=== PATIENT | male | born 1970 | race Caucasian/White ===

== ENCOUNTER 2016-12-01 21:03 | Observation (INO) | payer OTHER ==
[~2016-12-01] VITALS: Ht 182.9 cm; Wt 107.9 kg
[~2016-12-01 21:03] MED LIST: FLX10 PO; LRT5 PO
[2016-12-01] MEDS ORDERED: SODIUM CHLORIDE 0.9% 1000ML 1,000 ML IV SCH (21:34)
--- NOTE | 2016-12-01 21:52 | DIAGNOSTIC IMAGING REPORT ---
CHEST ONE VIEW PORTABLE CLINICAL HISTORY: 46 years-old Male presenting with cp/numbness left side tingling. TECHNIQUE: Portable upright AP view of the chest was obtained. COMPARISON: None. FINDINGS: Cardiomediastinal silhouette normal. Lungs and pleural spaces clear. Osseous structures normal. Upper abdomen normal. IMPRESSION: 1. No acute cardiopulmonary disease. Electronically signed by: Trung Teague M.D. 12/01/2016 9:51 PM Dictated Date/Time: 12/01/2016 9:50 PM
[2016-12-01 22:02] LABS: BASO % 0.6 %; BASO ABS # 0.04 K/uL (0-0.2); COMPLETE YES; EOS % 3.7 %; HEMATOCRIT 43.2 % (42-52); IG% 0.3 %; LYMPH % 30.1 %; LYMPH ABS # 1.95 K/uL (1.2-3.4); MEAN CELL VOLUME 84.2 fL (80-100); MEAN CORPUSCULAR HEMOGLOBIN 30.6 pg (25-34); MEAN CORPUSCULAR HGB CONC 36.3 g/dl (32-36); MEAN PLATELET VOLUME 10.1 fL (7.4-10.4); MONO % 5.1 %; NEUT % 60.2 %; PLATELET COUNT 175 K/uL (130-400); RED BLOOD COUNT 5.13 M/uL (4.7-6.1); WHITE BLOOD COUNT 6.47 K/uL (4.8-10.8)
--- NOTE | 2016-12-01 22:08 | DIAGNOSTIC IMAGING REPORT ---
HEAD WITHOUT CONTRAST (CT) CLINICAL HISTORY: 46 years-old Male presenting with Stroke, left*numbness. TECHNIQUE: Multidetector CT imaging of the head was performed without the use of intravenous contrast. IV contrast: None. A dose lowering technique was used consistent with the principles of ALARA (as low as reasonably achievable). COMPARISON: None. CT DOSE (mGy.cm): The estimated cumulative dose is 638.56 mGycm. FINDINGS: Manager Multimedia topogram: Unremarkable. Ventricles and sulci normal in size. Brain parenchyma normal in appearance with preserved haley-white differentiation. No mass effect or midline shift. No hemorrhage or acute territorial infarct. No extra-axial fluid collection. Paranasal sinuses and mastoid air cells clear. Calvarium intact. IMPRESSION: 1. No acute intracranial pathology. Electronically signed by: Trung Teague M.D. 12/01/2016 10:07 PM Dictated Date/Time: 12/01/2016 10:05 PM
[2016-12-01 22:10] LABS: POINT OF CARE TROPONIN I < 0.030 ng/ml (0-0.045)
[2016-12-01 22:12] LABS: PARTIAL THROMBOPLASTIN RATIO 1.1; PROTHROMBIN TIME (PATIENT) 10.3 SECONDS (9.0-12.0)
[2016-12-01 22:23] LABS: ALKALINE PHOSPHATASE 100 U/L (45-117); ALT/SGPT 68 U/L (12-78); AST/SGOT 29 U/L (15-37); BLOOD UREA NITROGEN 14 mg/dl (7-18); BUN/CREATININE RATIO 10.4 (10-20); CALCIUM 9.3 mg/dl (8.5-10.1); CARBON DIOXIDE 27 mmol/L (21-32); CHLORIDE 106 mmol/L (98-107); CKMB/CK RATIO 0.9 (0-3.0); GLUCOSE 96 mg/dl (70-99); POTASSIUM 3.7 mmol/L (3.5-5.1); SODIUM 140 mmol/L (136-145)
[2016-12-01] MEDS ORDERED: PRLSR20 PO (22:33)
[2016-12-01] MEDS ORDERED: ASPI325T39 PO (22:33)
--- NOTE | 2016-12-01 23:00 | DIAGNOSTIC IMAGING REPORT ---
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 TECHNIQUE: Real-time grayscale and color and spectral Doppler ultrasound imaging of the veins of the bilateral lower extremities was performed. Compression and augmentation were also utilized. COMPARISON: None. FINDINGS: Right: Common femoral vein: Patent. Femoral vein: Patent. Greater saphenous vein: Patent. Popliteal vein: Patent. Calf veins: Patent. Left: Common femoral vein: Patent. Femoral vein: Patent. Greater saphenous vein: Patent. Popliteal vein: Patent. Calf veins: Patent. Other: None. IMPRESSION: No evidence of deep venous thrombosis. Electronically signed by: Trung Teague M.D. 12/01/2016 10:59 PM Dictated Date/Time: 12/01/2016 10:59 PM
[2016-12-01 23:11] LABS: MAGNESIUM 2.1 mg/dl (1.8-2.4)
[2016-12-02] VITALS (8 sets, daily range): BP systolic 127–152; BP diastolic 70–90; PULSE 64–77; TEMP 36.4–37; O2SAT 94–98; Ht 182.9 cm; Wt 107.9 kg
[2016-12-02] MEDS ORDERED: ONDANSETRON INJ 2 MG/ML 2 ML VIAL IV PRN (00:45)
[2016-12-02] MEDS ORDERED: NITROGLYCERIN 0.4 MG SL PER TAB CHARGE SL PRN (00:45)
[2016-12-02] MEDS ORDERED: LORAZEPAM 2 MG/ML 1 ML VIAL IV PRN (00:45)
[2016-12-02] MEDS ORDERED: ACETAMINOPHEN 325 MG TAB PO PRN (00:45)
[2016-12-02] MEDS ORDERED: MoRPHine SULFATE 4 MG/ML 1 ML CARP\\VIAL IV PRN (00:45)
[2016-12-02] MEDS ORDERED: LACTATED RINGER'S 1000ML 1,000 ML IV ONE (00:45)
[2016-12-02] MEDS ORDERED: TRAMADOL HCL 50 MG TAB PO PRN (00:45)
[2016-12-02 01:41] LABS: LYME DISEASE AB IGM NEG (NEG)
[2016-12-02 01:42] LABS: LYME DISEASE AB IGG NEG (NEG)
[2016-12-02] MEDS ORDERED: LORAZEPAM INJ 0.5 MG in SYRINGE 0.75 ML IV PRN (02:30)
--- NOTE | 2016-12-02 03:18 | HISTORY & PHYSICAL EXAMINATION ---
DATE OF ADMISSION: 12/02/2016 The patient has no primary care doctor. CHIEF COMPLAINT: Chest pain. HISTORY OF PRESENT ILLNESS: History obtained from patient and records. Medical history significant for GERD, arthritis. 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 No previous episodes. No shortness of breath. No diaphoresis. No radiation to the neck. Different from reflux symptoms. Hx of tick bite about 2 years ago. Patient cannot recall if he was treated. Given aspirin by at home. Currently comfortable. MEDICAL HISTORY: As above. SURGICAL HISTORY: He had appendectomy, tonsillectomy, reflux. HOME MEDICATIONS: Prilosec. ALLERGIES: No known drug allergies. FAMILY HISTORY: Heart disease. PERSONAL AND SOCIAL HISTORY: Nonsmoker, no chronic intake of alcoholic beverages. 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 REVIEW OF SYSTEMS: As per HPI. All other ROS negative. PHYSICAL EXAMINATION: VITAL SIGNS: Blood pressure was noted to be 113/70, pulse rate 62, RR 16, temperature 36.7, sats 95 on room air. GENERAL: Noted to be obese, slightly anxious, no respiratory distress. SKIN: Normal color. HEENT: [place] palpebral conjunctivae. Dry mucosa. NECK: Short neck. CHEST: Clear to auscultation. HEART: Regular rate and rhythm. No anterior chest wall tenderness. ABDOMEN: Soft. EXTREMITIES: No edema. No tenderness. Good left shoulder range of motion. NEUROLOGIC: No gross focality. LABORATORY DATA: Hemoglobin is 15.7, hematocrit 43.2, white cell count 6.4, platelets 175. Sodium 140, potassium 3.7, chloride 106, CO2 27, BUN 14, creatinine 1. Glucose 96. LFTs, lipase normal. Troponin noted to be 0.015. Chest x-ray no active disease CT head, no acute pathology. EKG as per my interpretation, rate 75, normal sinus rhythm, some T-wave flattening in inferior leads. ASSESSMENT: Atypical chest pain with numbness differentials : acute coronary syndrome, Lyme dse. PLAN: Observation PCU ASA for now for CAD prevention until ACS is ruled out. Follow troponin. Lyme screen. 2D echo. Home in the morning if workup unremarkable. DVT prophylaxis, Lovenox subQ. Full code. MTDD
[2016-12-02] MEDS ORDERED: IV FLUIDS COMPLETED PRN (05:15)
[2016-12-02 05:54] LABS: BASO % 0.8 %; BASO ABS # 0.04 K/uL (0-0.2); COMPLETE YES; EOS % 4.8 %; HEMATOCRIT 41.9 % (42-52); IG% 0.2 %; LYMPH % 26.2 %; LYMPH ABS # 1.36 K/uL (1.2-3.4); MEAN CORPUSCULAR HGB CONC 35.3 g/dl (32-36); MEAN PLATELET VOLUME 10.2 fL (7.4-10.4); MONO % 8.7 %; NEUT % 59.3 %; PLATELET COUNT 165 K/uL (130-400); RED BLOOD COUNT 4.93 M/uL (4.7-6.1); WHITE BLOOD COUNT 5.19 K/uL (4.8-10.8)
[2016-12-02] MEDS ORDERED: ENOXAPARIN 40 MG/0.4 ML SYR SC SCH (06:00)
--- NOTE | 2016-12-02 06:31 | EMERGENCY ROOM VISIT NOTE ---
History First contact with patient: 21:28 Chief Complaint: ARM PAIN Stated Complaint: RADIATING PAIN IN LEFT ARM,NUMBNESS IN LEFT ARM History of Present Illness The patient is a 46 year old male who presents to the Emergency Room with complaints of left arm tingling that radiates to his chest that has been intermittent throughout the day with some sweating and back pain who also had some left thigh tingling has been intermittent today. 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 There is extensive family heart disease having heart attacks in their 40s. No prior heart testing. Patient states symptoms are intermittent and last from a few minutes to a few seconds. Patient denies dyspnea, abdominal pain, vomiting, diarrhea, leg swelling. No prior heart disease or blood clots. Patient does not routinely see a family care doctor but does see the [facility] walk-in clinic. Review of Systems See HPI for pertinent positives & negatives. A total of 10 systems reviewed and were otherwise negative. Past Medical/Surgical History Medical Problems: (1) Chest pain (2) HTN (hypertension) GERD, appendectomy, tonsillectomy, orthopedic injuries Family History Cancer Diabetes mellitus Heart disease Hypertension Social History Smoking Status: Never Smoker Smokeless Tobacco Use: Yes Alcohol Use: none Drug Use: none Marital Status: Housing Status: lives with family Occupation Status: employed Current/Historical Medications Scheduled Aspirin (Aspirin Ec), 325 MG PO DAILY Omeprazole (Prilosec), 20 MG PO DAILY Physical Exam Vital Signs Date Time Temp Pulse Resp B/P (MAP) Pulse Ox O2 Delivery O2 Flow Rate FiO2 12/01/16 23:59 62 16 139/70 95 Room Air 12/01/16 21:06 36.7 74 20 154/101 95 Room Air Physical Exam VITALS: Vitals are noted on the nurse's note and reviewed by myself. Vital signs stable. GENERAL: Pleasant male, in no acute distress, nondiaphoretic, well-developed well-nourished. SKIN: The skin was without rashes, erythema, edema, or bruising. There is no tenting of the skin. Capillary reflex less than 2 seconds. HEAD: Normocephalic atraumatic. EARS: External auditory canals clear, tympanic membranes pearly haley without erythema or effusion bilaterally. EYES: Pupils equal round and reactive to light and accommodation. Conjunctivae without injection, sclerae without icterus. Extraocular movements intact. NOSE: Patent, turbinates without inflammation or discharge. MOUTH: Mucous membranes moist. Pharynx without erythema or exudate. Uvula midline. Airway patent. Tongue does not deviate. NECK: Supple without nuchal rigidity. No lymphadenopathy. No thyromegaly. Cervical spine is nontender. No JVD. HEART: Regular rate and rhythm LUNGS: Clear to auscultation bilaterally without wheezes, rales or rhonchi. No dullness to percussion. No retractions or accessory muscle use. ABDOMEN: Positive bowel sounds x 4. Normal tympanic percussion. Soft, nontender, without masses or organomegaly. Mcclure sign negative. No guarding or rebound tenderness. MUSCULOSKELETAL: No muscle atrophy, erythema, or edema noted. NEURO: Patient was alert and oriented to person place and time. Normal sensation to light and sharp touch. No focal neurological deficits. Medical Decision & Procedures Laboratory Results 12/01/16 21:50 Test 12/01/16 21:50 12/01/16 21:51 Prothrombin Time 10.3 SECONDS (9.0-12.0) Prothromb Time International Ratio 1.0 (0.9-1.1) Activated Partial Thromboplast Time 28.5 SECONDS (21.0-31.0) Partial Thromboplastin Ratio 1.1 Anion Gap 7.0 mmol/L (3-11) Est Creatinine Clear Calc Drug Dose 90.4 ml/min Estimated GFR () 75.8 Estimated GFR (Non- 65.4 BUN/Creatinine Ratio 10.4 (10-20) Calcium Level 9.3 mg/dl (8.5-10.1) Magnesium Level 2.1 mg/dl (1.8-2.4) Total Bilirubin 0.4 mg/dl (0.2-1) Direct Bilirubin < 0.1 mg/dl (0-0.2) Aspartate Amino Transf (AST/SGOT) 29 U/L (15-37) Alanine Aminotransferase (ALT/SGPT) 68 U/L (12-78) Alkaline Phosphatase 100 U/L (45-117) Total Creatine Kinase 164 U/L (39-308) Creatine Kinase MB 1.4 ng/ml (0.5-3.6) Creatine Kinase MB Ratio 0.9 (0-3.0) Total Protein 7.2 gm/dl (6.4-8.2) Albumin 3.9 gm/dl (3.4-5.0) Lipase 183 U/L (73-393) Thyroid Stimulating Hormone (TSH) 4.080 uIu/ml (0.300-4.500) Lyme Disease IgG Antibody NEG (NEG) Lyme Disease IgM Antibody NEG (NEG) Bedside D-Dimer 172 ng/mlFEU (0-450) Bedside Troponin I < 0.030 ng/ml (0-0.045) Medications Administered Medications (Trade) Dose Ordered Sig/Elham Route Start Time Stop Time Status Last Admin Dose Admin Sodium Chloride 1,000 ml @ 50 mls/hr Q20H IV 12/01/16 21:34 12/02/16 02:16 DC 12/01/16 22:06 50 MLS/HR ED Course Prior records/ancillary studies reviewed. Triage Nursing notes reviewed. Additional history obtained from family. The patient's history was concerning for chest pain. Differential diagnosis: Etiologies such as cardiac ischemia, neurologic, aortic dissection, pulmonary embolism, pneumonia, pneumothorax, musculoskeletal, infections, pericarditis, myocarditis, esophageal rupture, gastrointestinal, as well as others were entertained. Physical examination: As above. ER treatment provided: Patient was observed. The gave aspirin just prior to arrival On reassessment the patient felt better. Diagnostic interpretation by me: The electrocardiogram was normal sinus, normal intervals, Q wave in lead 3, no acute ST-T wave changes, rate of 73. Impression normal sinus rhythm with Q wave in the inferior leads interpreted by myself The labs revealed troponin. Negative d-dimer Imaging studies: Chest x-ray no acute consolidation, pneumothorax. My interpretation Negative head CT per radiology Negative vascular ultrasound for DVT per radiology Consultation: A consultation was placed with the hospitalist, Dr. Ramsey. The case was discussed and diagnostics were reviewed. The patient was evaluated in the ER for further treatment. Family history seem consistent with chest pain with concerns for cardiac in etiology. He'll be evaluated by medicine for further evaluation and workup. Patient is agreeable to treatment plan. First set of heart enzymes are negative. He has a strong family history of heart disease and has not seen a doctor in quite sometime. He does chew tobacco. By the evaluation outlined above emergent etiologies such as aortic dissection , pulmonary embolism, pneumonia, pneumothorax, infections, pericarditis, myocarditis, gastrointestinal, as well as others were deemed relatively unlikely. The pt informed about the findings as listed above. All questions were answered and pleased with the treatment. Case reviewed with my attending Medical Decision As above Impression Primary Impression: Precordial chest pain Departure Information Dispostion Being Evaluated By Hospitalist Condition FAIR Referrals No Doctor, Assigned (PCP) Patient Instructions My [facility]
[2016-12-02 06:35] LABS: CHOLESTEROL 117 mg/dl (0-200); CHOLESTEROL/HDL RATIO 4.9; HDL CHOLESTEROL 24 mg/dl; LDL CHOLESTEROL CALCULATED 30 mg/dl; TRIGLYCERIDES 313 mg/dl (0-150); VERY LOW DENSITY LIPOPROT CALC 63 mg/dl
[2016-12-02] MEDS ORDERED: ASPIRIN 325 MG ECTAB PO SCH (09:00)
--- NOTE | 2016-12-02 12:36 | Progress Note ---
Medicine Progress Note Date & Time of Visit: Dec 02, 2016 at 12:23. Subjective Pt was seen and examined lying in bed comfortable with at bedside Pt said that he feels fine He said that he does not have any numbness in his left Upper extremities He denies any chest pain, palpitation, dizziness and SOB Objective Last 8 Hrs Date Time Temp Pulse Resp B/P (MAP) Pulse Ox O2 Delivery O2 Flow Rate FiO2 12/02/16 11:32 36.8 64 16 135/77 (96) 94 Room Air 12/02/16 08:00 95 Room Air 12/02/16 07:38 37.0 77 16 127/70 (89) 95 Room Air 12/02/16 04:43 36.4 64 20 150/75 (100) 94 Room Air Physical Exam: General- No acute distress Head- atraumatic Eyes- PERRL, EOMI ENT- oropharynx clear Neck- supple, no JVD Lungs- clear to auscultation Heart- regular rhythm; no murmur Abdomen- normal bowel sounds, soft Extremities- no calf tenderness Neuro- alert, oriented x 3; PERRL, EOMI; no facial palsy; no dysarthria; motor 5 /5 bilaterally; no cogwheel rigidity, finger to nose intact bilaterally Skin- warm & dry Laboratory Results: Last 24 Hours Test 12/01/16 21:50 12/01/16 21:51 12/02/16 05:26 White Blood Count 6.47 K/uL 5.19 K/uL Red Blood Count 5.13 M/uL 4.93 M/uL Hemoglobin 15.7 g/dL 14.8 g/dL Hematocrit 43.2 % 41.9 % Mean Corpuscular Volume 84.2 fL 85.0 fL Mean Corpuscular Hemoglobin 30.6 pg 30.0 pg Mean Corpuscular Hemoglobin Concent 36.3 g/dl 35.3 g/dl Platelet Count 175 K/uL 165 K/uL Mean Platelet Volume 10.1 fL 10.2 fL Neutrophils (%) (Auto) 60.2 % 59.3 % Lymphocytes (%) (Auto) 30.1 % 26.2 % Monocytes (%) (Auto) 5.1 % 8.7 % Eosinophils (%) (Auto) 3.7 % 4.8 % Basophils (%) (Auto) 0.6 % 0.8 % Neutrophils # (Auto) 3.89 K/uL 3.08 K/uL Lymphocytes # (Auto) 1.95 K/uL 1.36 K/uL Monocytes # (Auto) 0.33 K/uL 0.45 K/uL Eosinophils # (Auto) 0.24 K/uL 0.25 K/uL Basophils # (Auto) 0.04 K/uL 0.04 K/uL RDW Standard Deviation 38.3 fL 38.7 fL RDW Coefficient of Variation 12.6 % 12.8 % Immature Granulocyte % (Auto) 0.3 % 0.2 % Immature Granulocyte # (Auto) 0.02 K/uL 0.01 K/uL Prothrombin Time 10.3 SECONDS Prothromb Time International Ratio 1.0 Activated Partial Thromboplast Time 28.5 SECONDS Partial Thromboplastin Ratio 1.1 Sodium Level 140 mmol/L Potassium Level 3.7 mmol/L Chloride Level 106 mmol/L Carbon Dioxide Level 27 mmol/L Anion Gap 7.0 mmol/L Blood Urea Nitrogen 14 mg/dl Creatinine 1.30 mg/dl Est Creatinine Clear Calc Drug Dose 90.4 ml/min Estimated GFR () 75.8 Estimated GFR (Non- 65.4 BUN/Creatinine Ratio 10.4 Random Glucose 96 mg/dl Calcium Level 9.3 mg/dl Magnesium Level 2.1 mg/dl Total Bilirubin 0.4 mg/dl Direct Bilirubin < 0.1 mg/dl Aspartate Amino Transf (AST/SGOT) 29 U/L Alanine Aminotransferase (ALT/SGPT) 68 U/L Alkaline Phosphatase 100 U/L Total Creatine Kinase 164 U/L Creatine Kinase MB 1.4 ng/ml Creatine Kinase MB Ratio 0.9 Troponin I < 0.015 ng/ml < 0.015 ng/ml Total Protein 7.2 gm/dl Albumin 3.9 gm/dl Lipase 183 U/L Thyroid Stimulating Hormone (TSH) 4.080 uIu/ml Lyme Disease IgG Antibody NEG Lyme Disease IgM Antibody NEG Bedside D-Dimer 172 ng/mlFEU Bedside Troponin I < 0.030 ng/ml Triglycerides Level 313 mg/dl Cholesterol Level 117 mg/dl HDL Cholesterol 24 mg/dl LDL Cholesterol, Calculated 30 mg/dl VLDL Cholesterol, Calculated 63 mg/dl Cholesterol/HDL Ratio 4.9 Assessment & Plan Left UE numbness No focal neuro deficit of exam CT head showed no acute intracranial pathology. Received ASA Resolved Atypical chest discomfort Troponin are negative EKG showed no ischemic changes Echo pending No arrhythmia on tele monitor On aspirin Tobacco abuse Advised pt on tobacco chewing cessation DVT px on Lovenox subQ CODE STATUS FULL CODE DISPOSITION Will discharge home today if echo normal Current Inpatient Medications: Current Inpatient Medications Medications (Trade) Dose Ordered Sig/Elham Route Start Time Stop Time Status Last Admin Dose Admin Enoxaparin Sodium (Lovenox Inj) 40 mg Q24H SC 12/02/16 06:00 01/01/17 05:59 Acetaminophen (Tylenol Tab) 650 mg Q4H PRN PO 12/02/16 00:45 01/01/17 00:44 12/02/16 08:13 650 MG Nitroglycerin (Nitrostat Tab) 0.4 mg UD PRN SL 12/02/16 00:45 01/01/17 00:44 Aspirin (Ecotrin Tab) 325 mg QAM PO 12/02/16 09:00 01/01/17 08:59 12/02/16 08:09 325 MG Morphine Sulfate (MoRPHine SULFATE INJ) 4 mg Q3H PRN IV 12/02/16 00:45 12/16/16 00:44 Tramadol HCl (Ultram Tab) 25 mg Q6H PRN PO 12/02/16 00:45 01/01/17 00:44 Ondansetron HCl (Zofran Inj) 4 mg Q6H PRN IV 12/02/16 00:45 01/01/17 00:44 Lorazepam (Ativan Inj) 0.5 mg Q4H PRN IV 12/02/16 00:45 01/01/17 00:44 Lactated Ringer's 1,000 ml @ 75 mls/hr [id number] ONCE IV 12/02/16 00:45 12/02/16 14:04 12/02/16 02:34 75 MLS/HR Lorazepam 0.5 mg/ Syringe 1 ml @ 1 mls/min Q4H PRN IV 12/02/16 02:30 01/01/17 02:29 Miscellaneous (Iv Fluids Completed) 1 ea PRN PRN N/A 12/02/16 05:15 12/02/17 05:14
--- NOTE | 2016-12-02 14:07 | ECHOCARDIOGRAM REPORT ---
*NOTICE TO RECEIVING CONSTITUTION PARTY AGENCY This information is strictly Confidential and protected under [place] law. [place] law prohibits you from making any further disclosure of this information unless further disclosure is expressly permitted by the written consent of the person to whom it pertains or is authorized by law. A general authorization for the release of medical or other information is not sufficient for this purpose. Hospital accepts no responsibility if the information is made available to any other person, INCLUDING THE PATIENT. Interpretation Summary * Conclusions -- * The left ventricle is normal in size. * Left ventricular systolic function is normal. * Ejection Fraction = 60-65%. * The left ventricular wall motion is normal at rest. * The right ventricular systolic function is normal. * No significant valvular pathology. Procedure Details * A complete two-dimensional transthoracic echocardiogram was performed (2D, M-mode, Doppler and color flow Doppler). Left Ventricle * The left ventricle is normal in size. * There is normal left ventricular wall thickness. * Ejection Fraction = 60-65%. * Left ventricular systolic function is normal. * The left ventricular wall motion is normal at rest. Right Ventricle * The right ventricle is normal size. * The right ventricular systolic function is normal. Atria * The left atrial size is normal. * Right atrial size is normal. * The interatrial septum is intact with no evidence for an atrial septal defect. Mitral Valve * The mitral valve is normal in structure and function. Tricuspid Valve * The tricuspid valve is normal in structure and function. Aortic Valve * The aortic valve is normal in structure and function. Pulmonic Valve * The pulmonic valve is not well visualized. * There is no significant pulmonary regurgitation. Great Vessels * The aortic root and proximal ascending aorta are normal sized. Pericardium/Pleural * There is no pericardial effusion. MMode 2D Measurements and Calculations IVSd 1.0 cm IVSs 1.2 cm LVIDd 5.4 cm LVIDs 3.3 cm LVPWd 1.0 cm LVPWs 1.5 cm IVS/LVPW 0.99 FS 38.3 % EDV(Teich) 142.1 ml ESV(Teich) 45.4 ml EF(Teich) 68.0 % EDV(cubed) 158.5 ml ESV(cubed) 37.2 ml EF(cubed) 76.5 % % IVS thick 16.8 % % LVPW thick 42.0 % LV mass(C)d 219.4 grams LV mass(C)dI 95.5 grams/m\S\2 LV mass(C)s 152.9 grams LV mass(C)sI 66.5 grams/m\S\2 CO(Teich) 36.3 l/min CI(Teich) 15.8 l/min/m\S\2 SV(Teich) 96.7 ml SI(Teich) 42.1 ml/m\S\2 CO(cubed) 45.5 l/min CI(cubed) 19.8 l/min/m\S\2 SV(cubed) 121.3 ml SI(cubed) 52.8 ml/m\S\2 Ao root diam 3.6 cm Ao root area 10.3 cm\S\2 ACS 1.8 cm LA dimension 4.2 cm asc Aorta Diam 2.8 cm LA/Ao 1.2 EDV(MOD-sp4) 139.5 ml ESV(MOD-sp4) 64.1 ml EF(MOD-sp4) 54.1 % EDV(MOD-sp2) 136.6 ml ESV(MOD-sp2) 50.5 ml EF(MOD-sp2) 63.0 % CO(MOD-sp4) 28.3 l/min CI(MOD-sp4) 12.3 l/min/m\S\2 SV(MOD-sp4) 75.4 ml SI(MOD-sp4) 32.8 ml/m\S\2 CO(MOD-sp2) 32.3 l/min CI(MOD-sp2) 14.1 l/min/m\S\2 SV(MOD-sp2) 86.1 ml SI(MOD-sp2) 37.5 ml/m\S\2 Doppler Measurements and Calculations MV E max leo 69.6 cm/sec MV A max leo 51.5 cm/sec MV E/A 1.4 MV P1/2t max leo 67.7 cm/sec MV P1/2t 91.6 msec MVA(P1/2t) 2.4 cm\S\2 MV dec slope 216.4 cm/sec\S\2 MV dec time 0.26 sec PA V2 max 103.1 cm/sec PA max PG 4.3 mmHg PI max leo 174.3 cm/sec PI max PG 12.1 mmHg PI dec slope 184.4 cm/sec\S\2 PI P1/2t 276.8 msec
--- NOTE | 2016-12-02 15:04 | Discharge Instructions ---
Discharge Instructions Date of Service Dec 02, 2016. Admission Reason for Admission: Left arm weakness Discharge Discharge Diagnosis / Problem: Atypical chest discomfort, Left arm weakness, Tobacco abuse Discharge Goals Goal(s): Decrease discomfort, Improve function, Improve disease control Activity Recommendations Activity Limitations: resume your previous activity (as tolerated) . Instructions / Follow-Up Instructions / Follow-Up Follow up with your Primary care provider Dr. Wolfe on Dec 05 @ 2:55 PM Advised on smoking cessation Seek medical attention if symptom reoccurs Current Hospital Diet Patient's current hospital diet: AHA Diet (Heart Healthy) Discharge Diet Recommended Diet: AHA Diet (Heart Healthy) Pending Studies Studies pending at discharge: no Laboratory Results Lipid Panel Test 12/02/16 05:26 Range/Units Triglycerides Level 313 H 0-150 mg/dl Cholesterol Level 117 0-200 mg/dl HDL Cholesterol 24 mg/dl Cholesterol/HDL Ratio 4.9 LDL Cholesterol, Calculated 30 mg/dl Medical Emergencies . Who to Call and When: Medical Emergencies: If at any time you feel your situation is an emergency, please call 911 immediately. . Non-Emergent Contact Non-Emergency issues call your: Primary Care Provider Call Non-Emergent contact if: you have any medication questions . . "Provider Documentation" section prepared by Jazz Archer. . VTE Core Measure Inpt VTE Proph given/why not?: Enoxaparin (Lovenox)SQ
--- NOTE | 2016-12-06 00:48 | Discharge Summary ---
Discharge Summary Date of Service Dec 06, 2016. 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 TECHNIQUE: Real-time grayscale and color and spectral Doppler ultrasound imaging of the veins of the bilateral lower extremities was performed. Compression and augmentation were also utilized. COMPARISON: None. FINDINGS: Right: Common femoral vein: Patent. Femoral vein: Patent. Greater saphenous vein: Patent. Popliteal vein: Patent. Calf veins: Patent. Left: Common femoral vein: Patent. Femoral vein: Patent. Greater saphenous vein: Patent. Popliteal vein: Patent. Calf veins: Patent. Other: None. IMPRESSION: No evidence of deep venous thrombosis. Electronically signed by: Trung Teague M.D. 12/01/2016 10:59 PM Dictated Date/Time: 12/01/2016 10:59 PM CHEST ONE VIEW PORTABLE CLINICAL HISTORY: 46 years-old Male presenting with cp/numbness left side tingling. TECHNIQUE: Portable upright AP view of the chest was obtained. COMPARISON: None. FINDINGS: Cardiomediastinal silhouette normal. Lungs and pleural spaces clear. Osseous structures normal. Upper abdomen normal. IMPRESSION: 1. No acute cardiopulmonary disease. Electronically signed by: Trung Teague M.D. 12/01/2016 9:51 PM Dictated Date/Time: 12/01/2016 9:50 PM HEAD WITHOUT CONTRAST (CT) CLINICAL HISTORY: 46 years-old Male presenting with Stroke, left*numbness. TECHNIQUE: Multidetector CT imaging of the head was performed without the use of intravenous contrast. IV contrast: None. A dose lowering technique was used consistent with the principles of ALARA (as low as reasonably achievable). COMPARISON: None. CT DOSE (mGy.cm): The estimated cumulative dose is 638.56 mGycm. FINDINGS: Home Therapy Clinician topogram: Unremarkable. Ventricles and sulci normal in size. Brain parenchyma normal in appearance with preserved haley-white differentiation. No mass effect or midline shift. No hemorrhage or acute territorial infarct. No extra-axial fluid collection. Paranasal sinuses and mastoid air cells clear. Calvarium intact. IMPRESSION: 1. No acute intracranial pathology. Electronically signed by: Trung Teague M.D. 12/01/2016 10:07 PM Dictated Date/Time: 12/01/2016 10:05 PM Medication Reconciliation Continued Medications: Aspirin (Aspirin Ec) 325 Mg Tab 325 MG PO DAILY Omeprazole (Prilosec) 20 Mg Capcr 20 MG PO DAILY, CAP Admission Information HPI (per Admitting provider): CHIEF COMPLAINT: Chest pain. HISTORY OF PRESENT ILLNESS: History obtained from patient and records. Medical history significant for GERD, arthritis. 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 No previous episodes. No shortness of breath. No diaphoresis. No radiation to the neck. Different from reflux symptoms. Hx of tick bite about 2 years ago. Patient cannot recall if he was treated. Given aspirin by at home. Currently comfortable. Physical Exam (per Admitting): PHYSICAL EXAMINATION: VITAL SIGNS: Blood pressure was noted to be 113/70, pulse rate 62, RR 16, temperature 36.7, sats 95 on room air. GENERAL: Noted to be obese, slightly anxious, no respiratory distress. SKIN: Normal color. HEENT: [place] palpebral conjunctivae. Dry mucosa. NECK: Short neck. CHEST: Clear to auscultation. HEART: Regular rate and rhythm. No anterior chest wall tenderness. ABDOMEN: Soft. EXTREMITIES: No edema. No tenderness. Good left shoulder range of motion. NEUROLOGIC: No gross focality. Hospital Course Left UE numbness No focal neuro deficit of exam CT head showed no acute intracranial pathology. Received ASA Resolved Atypical chest discomfort Troponin are negative EKG showed no ischemic changes Echo pending No arrhythmia on tele monitor On aspirin Tobacco abuse Advised pt on tobacco chewing cessation DVT px on Lovenox subQ CODE STATUS FULL CODE DISPOSITION Will discharge home today if echo normal Total time spent on discharge = 35 minutes This includes examination of the patient, discharge planning, medication reconciliation, and communication with other providers. Discharge Instructions Discharge Instructions Date of Service Dec 02, 2016. Admission Reason for Admission: Left arm weakness Discharge Discharge Diagnosis / Problem: Atypical chest discomfort, Left arm weakness, Tobacco abuse Discharge Goals Goal(s): Decrease discomfort, Improve function, Improve disease control Activity Recommendations Activity Limitations: resume your previous activity (as tolerated) . Instructions / Follow-Up Instructions / Follow-Up Follow up with your Primary care provider Dr. Wolfe on Dec 05 @ 2:55 PM Advised on smoking cessation Seek medical attention if symptom reoccurs Current Hospital Diet Patient's current hospital diet: AHA Diet (Heart Healthy) Discharge Diet Recommended Diet: AHA Diet (Heart Healthy) Pending Studies Studies pending at discharge: no Laboratory Results Lipid Panel Test 12/02/16 05:26 Range/Units Triglycerides Level 313 H 0-150 mg/dl Cholesterol Level 117 0-200 mg/dl HDL Cholesterol 24 mg/dl Cholesterol/HDL Ratio 4.9 LDL Cholesterol, Calculated 30 mg/dl Medical Emergencies . Who to Call and When: Medical Emergencies: If at any time you feel your situation is an emergency, please call 911 immediately. . Non-Emergent Contact Non-Emergency issues call your: Primary Care Provider Call Non-Emergent contact if: you have any medication questions . . "Provider Documentation" section prepared by Jazz Archer. . VTE Core Measure Inpt VTE Proph given/why not?: Enoxaparin (Lovenox)SQ Additional Copies To Kieran Wolfe M.D.
== END 2016-12-02 15:30 | disposition home or self-care (01) ==
LOC: C.EDB 21:06 → C.MED 12-02 00:16 → ENRESERV 12-02 01:20
PROVIDERS: ADMIT Internal Medicine; ATTEND Internal Medicine
DX: R07.89 Other chest pain (principal); I10 Essential (primary) hypertension; K21.9 Gastro-esophageal reflux disease without esophagitis; Z82.49 Family history of ischemic heart disease and other diseases of the circulatory system; Z79.82 Long term (current) use of aspirin; Z79.899 Other long term (current) drug therapy

== ENCOUNTER 2019-08-24 22:54 | Observation (INO) ==
--- NOTE | 2019-08-24 23:35 | Emergency Department Note ---
Impression & Plan Acute GI bleeding ED Provider Note NAME: LUNA CORREIA AGE: 49 SEX: M ARRIVES VIA: Walk-In INFORMANT: [Patient ED PROVIDER(S): Alejandra Petersen DO CHIEF COMPLAINT: GI bleeding PLAN: Disposition: Admitted to the [facility] group MEDICAL DECISION MAKING: This is a 49-year-old male patient presents to the emergency department with GI bleeding. Laboratory studies reveal stable H&H. Physical exam reveals dark red blood per rectum with some hemorrhoids noted. The patient does become slightly tachycardic upon standing with some diaphoresis and lightheadedness. By history, he states that prior to coming to the emergency department tonight he had dark red blood coming from him while standing in the shower. This followed an episode of significant blood loss in the toilet after having a bowel movement. The patient has never had a colonoscopy. He does have a family history of colon cancer. He remains hemodynamically stable. I discussed the case with the [facility] service and they will evaluate him for further management. Triage Nursing notes reviewed and agree them. [Prior medical records reviewed] Vital Signs: reviewed and unremarkable Differential diagnosis: Upper GI bleeding, lower GI bleeding, hemorrhoidal bleeding, anemia, orthostasis Diagnostics interpreted by me: ECG: Normal sinus rhythm at 61. No ischemia or ectopy noted. There is no ST segment elevation. Cardiac Monitoring: Normal sinus rhythm at 71. Laboratory studies: [See below] HPI: 49/M arrives for evaluation of GI bleed. Patient presents to the emergency department explaining that he has had diarrhea for the past 12 hours. As the day progressed, the patient developed some bloody stools. He became much more concerned tonight when he was producing only blood into the toilet. He states that he got into the shower in preparation to come here to the hospital and there was dark red blood coming from his rectum without any control. He explained he then felt up his underwear with blood. He denies ever having GI bleeding in the past. He does have a family history of colon cancer. He is never had a colonoscopy in the past. The patient became lightheaded after producing blood into the toilet and after being in the shower. ROS: See above HPI for pertinent positives & negatives. A total of 10 systems reviewed and were otherwise negative. 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 Extraocular eye muscles are intact, and sclera are anicteric. Nose - moist nasal mucosa without discharge. Mouth - moist buccal mucosa. Oropharynx is nonerythematous and there is no tonsillar exudate or edema noted. Neck: Supple; no JVD, nuchal rigidity, cervical lymphadenopathy. Heart: Regular rate and rhythm. There is a normal S1 and S2 with no murmurs, clicks, or gallops appreciated. Lungs: Clear to auscultation bilaterally with no wheezes, rales, or rhonchi. Abdomen: Soft, completely nontender, nondistended, with good bowel sounds. There are no palpable pulsatile masses or hepatosplenomegaly. There is no guarding, rigidity, or rebound noted. Extremities: No evidence of cyanosis, clubbing, or edema. There are easily palpable peripheral pulses. Skin: warm and dry with good turgor and no rashes. Rectal exam: There were 3 fairly large hemorrhoids noted. There was some dark red blood per rectum. Rectal examination was extremely painful for the patient. There was no blood noted within the patient's underwear. ED COURSE: Times/Reassessments: 2355: The patient was evaluated in room C6. A complete history and physical was performed. An IV lock was initiated and labs were drawn as above. The patient was typed and screened for blood. An order was rahul yasmine for continuous cardiac monitoring. The patient remained in a normal sinus rhythm at 70. A twelve-lead EKG was obtained. 0010: I reevaluated the patient and did a rectal exam. I reevaluated the patient and he was sleeping. I woke him and discussed the situation with him. The patient remains quite concerned about the episodes of rectal bleeding upon standing. I discussed the case with Dr. Rogel from [facility] service and they will evaluate the patient for further care. Alejandra Petersen, DO Past Med/Surg History Social History Preferred Language: Korean Feels Safe at Home: Yes Smoking Status: Never smoker Allergies Allergies Allergy/AdvReac Type Severity Reaction Status Date / Time No Known Allergies Allergy Verified 08/24/19 23:31 Home Meds Home Medications Medication Instructions Recorded Confirmed aspirin [Aspirin Childrens] 81 mg PO QAM 08/24/19 08/24/19 lisinopril 10 mg PO QAM 08/24/19 08/24/19 omeprazole 20 mg PO DAILYBB 08/24/19 08/24/19 Results & Data (ED) Vital Signs Vital Signs - 24 hr 08/24/19 22:57 08/24/19 23:38 08/24/19 23:44 Temperature 36.9 C Temperature Source Oral Pulse Rate 76 76 Pulse Rate [Apical] Pulse Rate from SpO2 Sensor 77 Respiratory Rate 18 18 Respiratory Effort / Characteristics Non-Labored Spontaneous Respiratory Depth Normal Respiratory Pattern Regular Blood Pressure 154/66 H 149/75 H Blood Pressure [Left Arm] Blood Pressure Mean 95 92 Blood Pressure Mean [Left Arm] Blood Pressure Position Sitting Pulse Oximetry 95 96 96 Oxygen Delivery Method Room Air Room Air Room Air Sepsis Recent Fever Within 48 Hours No Sepsis Action Taken by Nursing No Action Required 08/24/19 23:50 08/24/19 23:51 08/25/19 00:00 Temperature Temperature Source Pulse Rate 74 67 Pulse Rate [Apical] 68 Pulse Rate from SpO2 Sensor 72 66 Respiratory Rate 25 H 23 19 Respiratory Effort / Characteristics Respiratory Depth Respiratory Pattern Blood Pressure 174/93 H 169/85 H Blood Pressure [Left Arm] 174/93 H Blood Pressure Mean 130 99 Blood Pressure Mean [Left Arm] 120 Blood Pressure Position Pulse Oximetry 95 94 93 Oxygen Delivery Method Room Air Room Air Room Air Sepsis Recent Fever Within 48 Hours Sepsis Action Taken by Nursing 08/25/19 00:31 08/25/19 01:00 08/25/19 01:30 Temperature Temperature Source Pulse Rate 62 63 70 Pulse Rate [Apical] Pulse Rate from SpO2 Sensor 64 64 Respiratory Rate Respiratory Effort / Characteristics Respiratory Depth Respiratory Pattern Blood Pressure 120/66 132/79 140/70 Blood Pressure [Left Arm] Blood Pressure Mean 97 86 87 Blood Pressure Mean [Left Arm] Blood Pressure Position Pulse Oximetry 95 93 95 Oxygen Delivery Method Room Air Room Air Room Air Sepsis Recent Fever Within 48 Hours Sepsis Action Taken by Nursing Laboratory Data Result diagrams: 08/24/19 23:42 08/24/19 23:42 Lab Results 08/24/19 08/24/19 08/24/19 Range/Units 23:42 23:42 23:42 WBC 5.35 (4.8-10.8) K/uL RBC 4.97 (4.7-6.1) M/uL Hgb 15.1 (14.0-18.0) g/dL Hct 42.6 (42-52) % MCV 85.7 (80-100) fL MCH 30.4 (25-34) pg MCHC 35.4 (32-36) g/dL RDW Std Deviation 40.7 (36.4-46.3) fL RDW Coeff of Adilson 13.1 (11.5-14.5) % Plt Count 184 (130-400) K/uL MPV 9.8 (7.4-10.4) fL Immature Gran % (Auto) 0.2 % Neut % (Auto) 67.9 % Lymph % (Auto) 19.3 % [place] % (Auto) 8.8 % Eos % (Auto) 3.4 % Baso % (Auto) 0.4 % Immature Gran # (Auto) 0.01 (0.00-0.02) K/uL Neut # (Auto) 3.64 (1.4-6.5) K/uL Lymph # (Auto) 1.03 L (1.2-3.4) K/uL [place] # (Auto) 0.47 (0.11-0.59) K/uL Eos # (Auto) 0.18 (0-0.5) K/uL Baso # (Auto) 0.02 (0-0.2) K/uL PT 10.7 (9.0-12.0) Seconds INR 1.0 (0.9-1.1) APTT 31.0 (21.0-31.0) Seconds PTT Ratio 1.1 Sodium (136-145) mmol/L Potassium (3.5-5.1) mmol/L Chloride (98-107) mmol/L Carbon Dioxide (21-32) mmol/L Anion Gap (3-11) BUN (7-18) mg/dl Creatinine (0.6-1.4) mg/dl Est Cr Clr Drug Dosing ml/min Est GFR ( Amer) Est GFR (Non-Af Amer) BUN/Creatinine Ratio (10-20) Glucose (70-99) mg/dl Calcium (8.5-10.1) mg/dl Magnesium (1.8-2.4) mg/dl Total Bilirubin (0.2-1) mg/dl AST (15-37) U/L ALT (12-78) U/L Alkaline Phosphatase (45-117) U/L Total Protein (6.4-8.2) gm/dl Albumin (3.4-5.0) gm/dl Globulin (2.5-4.0) gm/dl Albumin/Globulin Ratio (0.9-2) Specimen Hemolysis Blood Type O Positive Antibody Screen NEGATIVE 08/24/19 Range/Units 23:42 WBC (4.8-10.8) K/uL RBC (4.7-6.1) M/uL Hgb (14.0-18.0) g/dL Hct (42-52) % MCV (80-100) fL MCH (25-34) pg MCHC (32-36) g/dL RDW Std Deviation (36.4-46.3) fL RDW Coeff of Adilson (11.5-14.5) % Plt Count (130-400) K/uL MPV (7.4-10.4) fL Immature Gran % (Auto) % Neut % (Auto) % Lymph % (Auto) % [place] % (Auto) % Eos % (Auto) % Baso % (Auto) % Immature Gran # (Auto) (0.00-0.02) K/uL Neut # (Auto) (1.4-6.5) K/uL Lymph # (Auto) (1.2-3.4) K/uL [place] # (Auto) (0.11-0.59) K/uL Eos # (Auto) (0-0.5) K/uL Baso # (Auto) (0-0.2) K/uL PT (9.0-12.0) Seconds INR (0.9-1.1) APTT (21.0-31.0) Seconds PTT Ratio Sodium 138 (136-145) mmol/L Potassium 3.6 (3.5-5.1) mmol/L Chloride 106 (98-107) mmol/L Carbon Dioxide 26 (21-32) mmol/L Anion Gap 6.0 (3-11) BUN 19 H (7-18) mg/dl Creatinine 1.35 (0.6-1.4) mg/dl Est Cr Clr Drug Dosing 83.2 ml/min Est GFR ( Amer) 70.9 Est GFR (Non-Af Amer) 61.2 BUN/Creatinine Ratio 13.8 (10-20) Glucose 133 H (70-99) mg/dl Calcium 8.9 (8.5-10.1) mg/dl Magnesium 2.0 (1.8-2.4) mg/dl Total Bilirubin 0.6 (0.2-1) mg/dl AST 32 (15-37) U/L ALT 55 (12-78) U/L Alkaline Phosphatase 94 (45-117) U/L Total Protein 7.1 (6.4-8.2) gm/dl Albumin 3.8 (3.4-5.0) gm/dl Globulin 3.3 (2.5-4.0) gm/dl Albumin/Globulin Ratio 1.2 (0.9-2) Specimen Hemolysis Blood Type Antibody Screen Administered Medications Potassium Chloride/Sodium Chloride (Normal Saline W/20 Meq Kcl) 20 meq in 1,000 mls @ 60 mls/hr IV .[id number] ONE Stop: 08/25/19 19:54 Last Admin: 08/25/19 03:44 Dose: 60 mls/hr Documented by: [id number] Discontinued Medications Sodium Chloride (Nss 1000ml) 1,000 mls @ 100 mls/hr IV .Q10H SABIHA Stop: 08/25/19 09:44 Last Infusion: 08/25/19 02:10 Dose: 0 mls/hr Documented by: [id number] Admin: 08/24/19 23:49 Dose: 100 mls/hr Documented by: [id number] Potassium Chloride/Sodium Chloride (Normal Saline W/20 Meq Kcl) 20 meq in 1,000 mls @ 60 mls/hr IV .[id number] [facility] Stop: 09/24/19 02:43 Last Admin: 08/25/19 03:24 Dose: Not Given Documented by: [id number] Ioversol (Optiray 320 100ml) 100 ml IV ONCE PRN PRN Reason: Interaction Checking Stop: 08/29/19 02:21 Last Admin: 08/25/19 02:22 Dose: 93 ml Documented by: [id number] Discharge Plan Visit Data *Final* Discharge Date/Time: 08/25/19 02:01 Chief Complaint: Rectal Bleed Stated Complaint: RECTAL BLEED, DARK RED BLOOD ED Provider: Alejandra Petersen Discharge Problem: Acute GI bleeding Patient Disposition: Admitted As Inpatient Discharge Instructions Interventions: ED Discharge Assessment Last Done: 08/25/19 02:01
[2019-08-24] MEDS ORDERED: SODIUM CHLORIDE 0.9% 1000ML 1,000 ML IV SCH (23:45)
[2019-08-24 23:51] LABS: Basophils # (auto) 0.02 K/uL (0-0.2); Basophils % (auto) 0.4 %; Eosinophils # (auto) 0.18 K/uL (0-0.5); Eosinophils % (auto) 3.4 %; Hematocrit (blood only) 42.6 % (42-52); Hemoglobin 15.1 g/dL (14.0-18.0); Immature Granulocytes # (auto) 0.01 K/uL (0.00-0.02); Immature Granulocytes % (auto) 0.2 %; Lymphocytes # (auto) 1.03 K/uL (1.2-3.4); Lymphocytes % (auto) 19.3 %; Mean Corpuscular Hemoglobin 30.4 pg (25-34); Mean Corpuscular Hgb Conc 35.4 g/dL (32-36); Mean Corpuscular Volume 85.7 fL (80-100); Mean Platelet Volume 9.8 fL (7.4-10.4); Monocytes # (auto) 0.47 K/uL (0.11-0.59); Monocytes % (auto) 8.8 %; Neutrophils # (auto) 3.64 K/uL (1.4-6.5); Neutrophils % (auto) 67.9 %; Platelet Count 184 K/uL (130-400); RDW Coefficient of Variation 13.1 % (11.5-14.5); RDW Standard Deviation 40.7 fL (36.4-46.3); Red Blood Count 4.97 M/uL (4.7-6.1); White Blood Count 5.35 K/uL (4.8-10.8)
[2019-08-25 00:03] LABS: Partial Thromboplastin Ratio 1.1; Prothrombin Time 10.7 Seconds (9.0-12.0)
[2019-08-25 00:25] LABS: Albumin Level 3.8 gm/dl (3.4-5.0); BUN Creatinine Ratio 13.8 (10-20); Calcium 8.9 mg/dl (8.5-10.1); Creatinine Clr Calc Pharmacy 83.2 ml/min; Est GFR (African American) 70.9; Est GFR (Non-African American) 61.2; Potassium 3.6 mmol/L (3.5-5.1)
[2019-08-25 00:35] LABS: Albumin Globulin Ratio 1.2 (0.9-2); Bilirubin,Total 0.6 mg/dl (0.2-1); Globulin 3.3 gm/dl (2.5-4.0); Total Protein 7.1 gm/dl (6.4-8.2)
--- NOTE | 2019-08-25 01:33 | History & Physical Report ---
Date of Service August 25, 2019 Assessment & Plan (1) Acute lower GI bleeding: Rule out C. difficile, foodborne pathogen given uncooked hotdog consumption Patient nontoxic, not septic for now hypertension, stable OBS Medical telemetry CT abdomen pelvis Stool C. difficile May need GI consult pending work-up results DVT prophylaxis. SCDs RE L GIB Full code Text document was generated using [employer] voice recognition software. It may contain grammatical or spelling errors. Kindly contact undersigned for clarification of any documentation item in question. History of Present Illness Chief Complaint: Bloody diarrhea Primary Care Provider: Dr. Bueno History obtained from patient and records. Medical history significant for hypertension, GERD, arthritis. Last confinement November 2016 for atypical chest discomfort. Yesterday morning patient noted bloody diarrhea which progressed throughout the day -about 7 bowel movements achy lower abdominal with nausea and chills. No chest pain, no S OB. No known sick contacts or recent antibiotics. Admits to [place] 2 [place]. Patient consulted ER for evaluation. MEDICAL HISTORY: As above. EGD February 2018 showed erythematous gastric mucosa. No prior colonoscopies. SURGICAL HISTORY: appendectomy, tonsillectomy FAMILY HISTORY: Heart disease, colon cancer, no IBD. PERSONAL AND SOCIAL HISTORY: Nonsmoker, no chronic intake of alcoholic beverages. 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 Allergies Allergy/AdvReac Type Severity Reaction Status Date / Time No Known Allergies Allergy Verified 08/24/19 23:31 Home Medications Home Medications Medication Instructions Recorded Confirmed Type aspirin [Aspirin Childrens] 81 mg PO QAM 08/24/19 08/24/19 History lisinopril 10 mg PO QAM 08/24/19 08/24/19 History omeprazole 20 mg PO DAILYBB 08/24/19 08/24/19 History Past Med/Surg History Social History Preferred Language: Luxembourgish Feels Safe at Home: Yes Smoking Status: Never smoker Review of Systems Review of Systems: As per HPI, all 10 systems reviewed, all other ROS negative Physical Exam Physical Exam: GENERAL: Comfortable, slightly anxious, obese, pleasant, no respiratory distress SKIN: Normal color, warm HEENT: [place] palpebral conjunctivae, no ptosis, dry buccal mucosa NECK : Supple, short neck, no tenderness CHEST : CTA, no tenderness HEART : RRR, no obvious murmurs ABDOMEN: Some distention, minimal hypogastric tenderness RECTAL : Tender external hemorrhoid noted anal exam EXTREMITIES : No LE swelling/tenderness, no other conspicuous deformities noted NEUROLOGIC : Coherent, no facial asymmetry, no other gross focality Results & Data Results & Data ([facility]) Vital Signs (Past 12 Hours) Vital Signs Temp Pulse Pulse Resp BP BP Pulse Ox 08/25/19 00:31 62 120/66 95 08/25/19 00:00 67 19 169/85 H 93 08/24/19 23:51 68 23 174/93 H 94 08/24/19 23:50 74 25 H 174/93 H 95 08/24/19 23:44 96 08/24/19 23:38 76 18 149/75 H 96 08/24/19 22:57 36.9 C 76 18 154/66 H 95 Laboratory Results Laboratory Results WBC 5.35 K/uL (4.8-10.8) 08/24/19 23:42 RBC 4.97 M/uL (4.7-6.1) 08/24/19 23:42 Hgb 15.1 g/dL (14.0-18.0) 08/24/19 23:42 Hct 42.6 % (42-52) 08/24/19 23:42 MCV 85.7 fL (80-100) 08/24/19 23:42 MCH 30.4 pg (25-34) 08/24/19 23:42 MCHC 35.4 g/dL (32-36) 08/24/19 23:42 RDW Std Deviation 40.7 fL (36.4-46.3) 08/24/19 23:42 RDW Coeff of Adilson 13.1 % (11.5-14.5) 08/24/19 23:42 Plt Count 184 K/uL (130-400) 08/24/19 23:42 MPV 9.8 fL (7.4-10.4) 08/24/19 23:42 Immature Gran % (Auto) 0.2 % 08/24/19 23:42 Neut % (Auto) 67.9 % 08/24/19 23:42 Lymph % (Auto) 19.3 % 08/24/19 23:42 [place] % (Auto) 8.8 % 08/24/19 23:42 Eos % (Auto) 3.4 % 08/24/19 23:42 Baso % (Auto) 0.4 % 08/24/19 23:42 Immature Gran # (Auto) 0.01 K/uL (0.00-0.02) 08/24/19 23:42 Neut # (Auto) 3.64 K/uL (1.4-6.5) 08/24/19 23:42 Lymph # (Auto) 1.03 K/uL (1.2-3.4) L 08/24/19 23:42 [place] # (Auto) 0.47 K/uL (0.11-0.59) 08/24/19 23:42 Eos # (Auto) 0.18 K/uL (0-0.5) 08/24/19 23:42 Baso # (Auto) 0.02 K/uL (0-0.2) 08/24/19 23:42 PT 10.7 Seconds (9.0-12.0) 08/24/19 23:42 INR 1.0 (0.9-1.1) 08/24/19 23:42 APTT 31.0 Seconds (21.0-31.0) 08/24/19 23:42 PTT Ratio 1.1 08/24/19 23:42 Sodium 138 mmol/L (136-145) 08/24/19 23:42 Potassium 3.6 mmol/L (3.5-5.1) 08/24/19 23:42 Chloride 106 mmol/L (98-107) 08/24/19 23:42 Carbon Dioxide 26 mmol/L (21-32) 08/24/19 23:42 Anion Gap 6.0 (3-11) 08/24/19 23:42 BUN 19 mg/dl (7-18) H 08/24/19 23:42 Creatinine 1.35 mg/dl (0.6-1.4) 08/24/19 23:42 Est Cr Clr Drug Dosing 83.2 ml/min 08/24/19 23:42 Est GFR ( Amer) 70.9 08/24/19 23:42 Est GFR (Non-Af Amer) 61.2 08/24/19 23:42 BUN/Creatinine Ratio 13.8 (10-20) 08/24/19 23:42 Glucose 133 mg/dl (70-99) H 08/24/19 23:42 Calcium 8.9 mg/dl (8.5-10.1) 08/24/19 23:42 Magnesium 2.0 mg/dl (1.8-2.4) 08/24/19 23:42 Total Bilirubin 0.6 mg/dl (0.2-1) 08/24/19 23:42 AST 32 U/L (15-37) 08/24/19 23:42 ALT 55 U/L (12-78) 08/24/19 23:42 Alkaline Phosphatase 94 U/L (45-117) 08/24/19 23:42 Total Protein 7.1 gm/dl (6.4-8.2) 08/24/19 23:42 Albumin 3.8 gm/dl (3.4-5.0) 08/24/19 23:42 Globulin 3.3 gm/dl (2.5-4.0) 08/24/19 23:42 Albumin/Globulin Ratio 1.2 (0.9-2) 08/24/19 23:42 Specimen Hemolysis 08/24/19 23:42 Blood Type O Positive 08/24/19 23:42 Antibody Screen NEGATIVE 08/24/19 23:42 Diagnostic Findings EKG as per my interpretation rate 60, NSR, LAD, LAFB, T wave flattening inferior leads
[2019-08-25] MEDS ORDERED: IOVERSOL 100ml IV PRN (02:22)
[2019-08-25] MEDS ORDERED: LORazepam 0.5 MG/1 ML VIAL IV PRN (02:44)
[2019-08-25] MEDS ORDERED: TRAMADOL HCL 50 MG TABLET PO PRN (02:44)
[2019-08-25] MEDS ORDERED: MoRPHine SULFATE 4 MG/ML 1 ML CARP\\VIAL IV PRN (02:44)
[2019-08-25] MEDS ORDERED: PROMETHAZINE HCL 12.5 MG in SODIUM CHLORIDE 0.9% 50 ML IV PRN (02:44)
[2019-08-25] MEDS ORDERED: ACETAMINOPHEN 325 MG TAB PO PRN (02:44)
[2019-08-25] MEDS ORDERED: NSS + 20MEQ KCL 20 MEQ/1,000 ML BAG IV SCH (02:44)
[2019-08-25] MEDS ORDERED: NSS + 20MEQ KCL 20 MEQ/1,000 ML BAG IV ONE (03:15)
[2019-08-25 06:22] LABS: Basophils # (auto) 0.02 K/uL (0-0.2); Basophils % (auto) 0.4 %; Eosinophils # (auto) 0.21 K/uL (0-0.5); Eosinophils % (auto) 4.1 %; Hematocrit (blood only) 41.5 % (42-52); Hemoglobin 14.7 g/dL (14.0-18.0); Lymphocytes # (auto) 1.38 K/uL (1.2-3.4); Mean Corpuscular Hemoglobin 30.9 pg (25-34); Mean Corpuscular Hgb Conc 35.4 g/dL (32-36); Mean Corpuscular Volume 87.2 fL (80-100); Mean Platelet Volume 9.8 fL (7.4-10.4); Monocytes % (auto) 11.7 %; Neutrophils % (auto) 56.8 %; Platelet Count 165 K/uL (130-400); RDW Coefficient of Variation 13.1 % (11.5-14.5); RDW Standard Deviation 41.7 fL (36.4-46.3); Red Blood Count 4.76 M/uL (4.7-6.1); White Blood Count 5.11 K/uL (4.8-10.8)
--- NOTE | 2019-08-25 06:41 | CT Scan Report ---
CT OF THE ABDOMEN AND PELVIS WITH CONTRAST CLINICAL HISTORY: Abdominal pain. Rectal bleeding. COMPARISON STUDY: CT of the abdomen and pelvis September 21, 2018. TECHNIQUE: Following IV administration of 93 mL of Optiray-320, axial images of the abdomen and pelvi s were obtained from the lung bases to the proximal femurs. Images were reviewed in the axial, sagitt al, and coronal planes. IV contrast was administered without complication. Automated exposure contro l was utilized for the study. A dose lowering technique was utilized adhering to the principles of A DAY[place]. CT DOSE: 875.06 mGy.cm FINDINGS: Lung bases are unremarkable. No pneumatosis, free air or portal venous gas is present. The liver, spleen, adrenal glands, right kidney and pancreas are unremarkable with exception of a subcent imeter medial segment hepatic lesion which is unchanged since prior CT. This favors a cyst. A 3 mm ca lculus within the lower pole of the left kidney is noted. There are no ureteral calculi. There is no hydronephrosis or hydroureter. The appendix is not visualized. There is no right lower quadrant infla mmation. There is no evidence for a bowel obstruction. Colonic diverticulosis is noted without eviden ce for acute diverticulitis. Note is made of fat-containing umbilical hernia. There is a fat-containi ng left inguinal hernia. Sensitivity for detection of bowel mucosal lesions is diminished given CT te chnique but none are identified. IMPRESSION: 1. No acute process within the abdomen or pelvis. 2. 3 mm left renal calculus. No ureteral calculi or hydronephrosis. 3. No bowel obstruction. No bowel wall thickening. 4. Fat-containing umbilical hernia. Fat-containing left inguinal hernia. ACT 112: Negative or not required by law. Electronically signed by: Dragan Mora M.D. 08/25/2019 6:39 AM
[2019-08-25] MEDS ORDERED: PANTOprazole 40 MG TAB PO SCH (09:00)
[2019-08-25] MEDS ORDERED: lisinopriL 10 MG TAB PO SCH (09:00)
[2019-08-25 12:29] LABS: Hematocrit (blood only) 42.2 % (42-52); Hemoglobin 14.5 g/dL (14.0-18.0)
--- NOTE | 2019-08-25 14:09 | Gastrointestinal Consultation ---
Date of Consultation August 25, 2019 Assessment & Plan (1) Acute lower GI bleeding: Pt is a 49 y/o male admitted with BRBPR after several episodes of diarrhea. VS, H/H stable (blood ct normal), CT abd/pelvis w contrast unremarkable. ? possible food poisoning from ingestion of uncooked hotdog during camping on Sunday. Rectal bleeding suspected to be hemorrhoidal in nature. No more BMs or rectal bleeding since pre admission. - Advance diet as tolerated - Hydrocortisone [place] cream prn hemorrhoidal bleeding - No contraindication for DC home from GI standpoint. He has family hx of colorectal ca (grandmother in 50s); will arrange for outpt colonoscopy Supervising Physician Co-Signing Physician Notes Late entry: Patient was seen and examined on 08/24 with DAYLIN Alberto whose note reflects our findings and plan. History of Present Illness Reason for Consultation: GI bleed Requesting Physician: Dr. Lilibeth Gill Attending Physician: Dr. Negin Francis History of Present Illness Pt is a 49 y/o male who presented to ED last night w c/o rectal bleeding. He was at camp on Sunday, ate an uncooked hot dog Sunday night and started to have abd cramping, diarrhea that evening. Diarrhea extended to Sunday x 6-7 episodes. Was able to eat cheesesteak for dinner last night but 1 hr after that had another diarrhea episode. This time he saw large amt of red blood in commode. He then decide to come to ED for evaluation. He hasn't had anymore BMs or rectal bleeding since pre-admission. VS stable w/o signs of hypotension or tachycardia. Labs showed normal blood ct, mildly elevated BUN. CT abd/pelvis w contrast was unremarkable w/o signs of obstruction or inflammation. Pt reports intermittent hx of small amt of rectal bleeding when he strains or when lifting heavy things. Grandmother w hx of colorectal ca in 50s. Denies hx of IBD in family. +tobacco use, denies ETOH abuse, marijuana, NSAIDs. EGD 02/2018 - gastritis Allergies Allergy/AdvReac Type Severity Reaction Status Date / Time No Known Allergies Allergy Verified 08/24/19 23:31 Home Medications Home Medications Medication Instructions Recorded Confirmed Type aspirin [Aspirin Childrens] 81 mg PO QAM 08/24/19 08/24/19 History lisinopril 10 mg PO QAM 08/24/19 08/24/19 History omeprazole 20 mg PO DAILYBB 08/24/19 08/24/19 History hydrocortisone [Anusol-HC] 1 appln [place] Q12H PRN #30 gm 08/25/19 Rx Patient History Medical History Heart burn History of abdominal hernia HTN (hypertension) (Chronic) Surgical History History of endoscopy Social History Preferred Language: Kazakh Communication Ability: Effective Beliefs That Will Affect Care: None Current Living Situation: Spouse Other Information That Helps Us Care for You: No Feels Safe at Home: Yes Safety Concerns: Feels Safe At This Time Smoking Status: Never smoker Do You Dip or Chew Tobacco: Yes ; Second Hand Exposure: No ; Tobacco Cessation Education Requested by Patient: No Hx Alcohol Use: No Hx Substance Use: No Review of Systems Review of Systems: All systems reviewed & are unremarkable except as noted in HPI & below Physical Exam Constitutional: WD/WN, vitals as above well groomed, cooperative and comfor table Eyes: PERRL, conjunctivae normal, anicteric sclerae ENMT: external ear and nose normal, oropharynx normal Respiratory: normal respiratory effort, lungs clear to auscultation Cardiovascular: RRR, no murmur, no edema Gastrointestinal (Abdomen): normal bowel sounds, soft, nontender, no hepatosplenomegaly Rectal - pt deferred internal exam. External exam showed small hemorrhoid possible from internal, no signs of fissure or blood residue Skin: no rashes, warm and dry no jaundice Psychiatric: A+Ox3, euthymic affect Lymphatic: no lymphedema Results & Data ([facility]) Vital Signs (Past 12 Hours) Vital Signs Temp Pulse Resp BP Pulse Ox 08/25/19 07:41 36.7 C 72 20 106/62 98 08/25/19 04:06 36.8 C 79 20 143/83 H 96
[2019-08-25] MEDS ORDERED: HYDROCORTISONE HC 2.5% CRM 30GM TUBE EXT PRN (14:32)
--- NOTE | 2019-08-25 14:41 | Discharge Summary ---
Date of Service August 25, 2019 Admission HPI Per Admitting Provider History obtained from patient and records. Medical history significant for hypertension, GERD, arthritis. Last confinement November 2016 for atypical chest discomfort. Yesterday morning patient noted bloody diarrhea which progressed throughout the day -about 7 bowel movements achy lower abdominal with nausea and chills. No chest pain, no S OB. No known sick contacts or recent antibiotics. Admits to consumption of uncooked hot dog at camp 2 days ago. Patient consulted ER for evaluation. MEDICAL HISTORY: As above. EGD February 2018 showed erythematous gastric mucosa. No prior colonoscopies. SURGICAL HISTORY: appendectomy, tonsillectomy FAMILY HISTORY: Heart disease, colon cancer, no IBD. PERSONAL AND SOCIAL HISTORY: Nonsmoker, no chronic intake of alcoholic beverages. 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 Admission Exam Per Admitting Provider GENERAL: Comfortable, slightly anxious, obese, pleasant, no respiratory distress SKIN: Normal color, warm HEENT: [place] palpebral conjunctivae, no ptosis, dry buccal mucosa NECK : Supple, short neck, no tenderness CHEST : CTA, no tenderness HEART : RRR, no obvious murmurs ABDOMEN: Some distention, minimal hypogastric tenderness RECTAL : Tender external hemorrhoid noted anal exam EXTREMITIES : No LE swelling/tenderness, no other conspicuous deformities noted NEUROLOGIC : Coherent, no facial asymmetry, no other gross focality Principal Diagnosis diarrhea-resolved hematochezia-resolved hemorrhoids Discharge Exam CONSTITUTIONAL: WNWD, vitals as above, generally well-appearing EYES: normal conjunctivae, no scleral icterus ENT: external ear and nose normal, MMM RESPIRATORY: clear to auscultation bilaterally, no crackles, rales or wheezes, normal respiratory effort CARDIOVASCULAR: regular rate and rhythm, S1 and 2 heard without murmurs, gallops or rubs, no JVD, no peripheral edema GASTROINTESTINAL: soft, nontender, nondistended : rectal exam declined by patient MUSCULOSKELETAL: strength 5/5 throughout, head is normocephalic and atraumatic SKIN: warm and dry NEUROLOGIC: CN 2-12 grossly intact, normal cognition, normal speech, no gross focal deficits. PSYCHIATRIC: alert cooperative and oriented to person, place and time. Discharge Data Allergies Allergy/AdvReac Type Severity Reaction Status Date / Time No Known Allergies Allergy Verified 08/24/19 23:31 Consultations 08/25/19 01:04 ED Decision to Admit Stat 08/25/19 12:33 Consult Gastroenterology Routine Ordered Studies 08/25/19 01:32 CT abd pelvis IV con only Urgent Hospital Course (1) Foodborne gastroenteritis: (2) Hematochezia: (3) Hemorrhoids: 49-year-old male presented to the ER after one day of diarrhea. He developed hematochezia, prompting presentation. He had known consumption of uncooked poultry the prior day. He had no abdominal pain, fever or other signs of acute clinical illness and did not have further stools after admission. Therefore, no stool culture was performed. Work-up included a normal CBC normal comprehensive metabolic panel, normal lipase. Abdominal and pelvis CT with contrast was performed revealing no bowel obstruction or bowel wall thickening and no acute process within the abdomen or pelvis. A 3 mm left renal calculus was incidentally noted without evidence of ureteral calculi or hydronephrosis. Additionally a fat-containing umbilical hernia and a fat-containing left inguinal hernia were seen. Both were not clinically present on exam and the patient was asymptomatic. The patient denied any vomiting and was able to tolerate p.o. prior to discharge. Gastroenterology was seen and felt this was consistent with a hemorrhoid causing hematochezia after several episodes of diarrhea possibly secondary to a foodborne illness. Symptom therapy was recommended. Additionally, an outpatient screening colonoscopy was recommended. At time of discharge patient was mentating and ambulating at baseline and tolerating p.o. He was hemodynamically stable and afebrile and was sent home in stable condition with close primary care follow-up recommended. Total Time Total Time Spent Total Time Spent (In Minutes): 60 Total Time Includes: Examination of the Patient, Discharge Planning, Medication Reconciliation and Communication With Other Providers Discharge Plan Discharge Items Patient Disposition: Home - Self-Care Reason For Visit: LGIB Discharge Diagnosis: diarrhea-resolved hematochezia-resolved hemorrhoids Condition on Discharge: Good Activity: Resume your previous activity Non-emergency contact: Primary Care Provider Call non-emergency contact if: you have any medication questions, your symptoms worsen, your pain is not controlled, your pain is worsening, your pain is unusual for you, your pain is concerning for you and you have a fever Follow-up/Referrals: Camelia Bejarano MD [Physician] - 09/01/19 12:00 pm (09/01/2019 12:00 PM Provider Fernando Ho MD Department General Internal Medicine [facility] ) Diet: Regular Addtl Attending Provider Instructions: Your diarrhea is felt to be from a foodborne illness. The blood you visualized was thought to be secondary to hemorrhoids. You are being given a topical cream to use as needed for any rectal discomfort. This cream can be used in conjunction with SITZ baths and you may also choose to use a paste such as Desitin instead of the steroid option. If you experience further bleeding, abdominal pain, nausea or vomiting or any other concerning symptoms please seek immediate medical attention. It is recommended that you follow-up with your primary care doctor within 1 week of discharge from the hospital to ensure you are still doing well and having no issues with blood per rectum. It is recommended that you follow-up with [facility] gastroenterology for screening outpatient colonoscopy. Someone from their office will be contacting you to set this up. It was a pleasure taking care of you! Please call if you have any questions or problems. You can reach a [facility] hospitalist on duty at [facility] 24 hours a day by calling [phone]. Take care of yourself. Lilibeth Gill, DO [facility] Pending Studies at Discharge: No Stand-Alone Forms: My [facility], Smoking Cessation Medications and DC Order Prescriptions: New hydrocortisone [Anusol-HC] 2.5 % cream with perineal applicator 1 appln [place] Q12H PRN (Reason: itching) Qty: 30 RF: 0 Continued lisinopril 10 mg Tablet 10 mg PO QAM RF: 0 omeprazole 20 mg Capsule,Delayed Release(Dr/Ec) 20 mg PO DAILYBB RF: 0 aspirin [Aspirin Childrens] 81 mg Tablet,Chewable 81 mg PO QAM RF: 0 Discharge Orders: Discharge Order (Routine); Ordered 08/25/19 Ordered By: Lilibeth Gill Admission Data Admit Date/Time: 08/25/19 01:36 Attending Provider: Lilibeth Gill Admit Provider: Edgar Ramsay Primary Care Provider: PCP,NO Other Providers: Edgar Ramsay ; Negin Francis Other Interventions: Discharge Summary Assessment (RN) Last Done: 08/25/19 14:08
--- NOTE | 2019-08-25 22:25 | Electrocardiogram Report ---
Test Reason : Blood Pressure : / mmHG Vent. Rate : 061 BPM Atrial Rate : 061 BPM P-R Int : 162 ms QRS Dur : 104 ms QT Int : 428 ms P-R-T Axes : 032 -17 005 degrees QTc Int : 430 ms Normal sinus rhythm Normal ECG When compared with ECG of 02-DEC-2016 09:00, Questionable change in QRS axis Inverted T waves have replaced nonspecific T wave abnormality in Inferior leads Confirmed by Morgan Ochoa ([id number]) on 08/25/2019 10:25:17 PM Referred By: REFERRED SELF Confirmed By:Morgan Ochoa
== END 2019-08-25 16:25 | disposition home or self-care (01) ==
LOC: 2W 22:54 → ED 22:54 → 2W 08-25 02:01